=== PATIENT | female | born 1950 | race African-American/Black ===

== ENCOUNTER 2016-08-12 00:28 | Emergency (ER) | payer SELFPAY ==
[~2016-08-12] VITALS: Ht 170.2 cm; Wt 63.5 kg
[2016-08-12] MEDS ORDERED: IBUPROFEN600 MG ORAL (01:00)
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
[2016-08-12 04:45] VITALS: BP 155/89
[2016-08-12 07:20] VITALS: BP 150/86
[2016-08-12 08:56] VITALS: BP 148/75
--- NOTE | 2016-08-12 09:31 | Diagnostic Imaging Report ---
Indications: Chest pain Technique: AP chest Findings: Comparison: None Inspiratory effort is suboptimal. Linear densities in both lung bases. Lungs otherwise clear. Heart size, pulmonary vasculature within normal limits. No obvious pleural abnormality. Thoracic aorta and elongated. IMPRESSION: Pulmonary bibasal subsegmental atelectasis versus scarring Otherwise no evidence of acute cardiopulmonary disease, limited as described. Basal abnormalities may be missed. Upright PA and lateral chest radiographs with better inspiratory effort and optimal technique recommended for more complete evaluation. 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
== END 2016-08-12 08:57 | disposition home or self-care (01) ==
LOC: EDBD 00:28 → EMR 00:55
DX: S20.211A Contusion of right front wall of thorax, initial encounter (principal); Y04.2XXA Assault by strike against or bumped into by another person, initial encounter; Y92.89 Other specified places as the place of occurrence of the external cause; Z88.2 Allergy status to sulfonamides
CPT/HCPCS: 71010; 99283